=== PATIENT | male | born 1990 | race Caucasian/White ===

== ENCOUNTER 2016-11-15 03:14 | Emergency (ER) | payer OTHER ==
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
[2016-11-15] MEDS ORDERED: KETOROLAC TROMETHAMINE 60 MG/2 ML VIAL IM ONE ×2 (04:47→04:53)
[2016-11-15 05:27] VITALS: BP 130/87
== END 2016-11-15 05:05 ==
LOC: ER 03:14
DX: S16.1XXA Strain of muscle, fascia and tendon at neck level, initial encounter (principal); F17.200 Nicotine dependence, unspecified, uncomplicated; V49.9XXA Car occupant (driver) (passenger) injured in unspecified traffic accident, initial encounter; Y92.414 Local residential or business street as the place of occurrence of the external cause